=== PATIENT | female | born 1950 | race Caucasian/White ===

== ENCOUNTER 2017-03-14 05:40 | Day surgery (SDC) | payer MEDICARE, OTHER ==
[~2017-03-14] VITALS: Ht 177.8 cm; Wt 110.2 kg
[~2017-03-14 05:40] MED LIST: ADULT LOW DOSE81 MG PO; CHOLESTYRAMINE P4 GM PO; COREG25 MG PO; COZAAR25 MG PO; CYMBALTA20 MG PO; DOXAZOSIN MESYLA8 MG PO; HYDROCODON-ACE1 EA10 PO; LEVOTHYROXINE50 MCG PO; MULTIVITAMINS1 EAC7 PO; OMEPRAZOLE20 MG PO; VITAMIN D31000 UNI1 PO; WELLBUTRIN SR100 MG PO
[2017-03-14] MEDS ORDERED: POTASSIUM CHLO20 ME1 PO (06:00)
--- NOTE | 2017-03-14 08:22 | NUR ---
[facility] DECRE[facility] TO 6L VIA MASK.
--- NOTE | 2017-03-14 09:56 | NUR ---
PT TOLERATED APPLE SAUCE AND WATER WITH NO NAUSEA
--- NOTE | 2017-03-14 10:47 | NUR ---
1040 PT DENIES PAIN. TOLERATED COFFEE WITH NO NAUSEA. MUSTACHE DRESSING REPLACED AND A SMALL AMT OF DRAINAGE NOTED. PT AMB TO RESTROOM AND VOID NOTED. CALLED.
--- NOTE | 2017-05-23 09:33 | OR ---
[facility] [address] [place], [place] [address] Signed PREOPERATIVE DIAGNOSES: Septal deformity and left intranasal lesion. POSTOPERATIVE DIAGNOSES: Septal deformity and left intranasal lesion. PROCEDURE: Excision of left intranasal lesion and a septoplasty. SURGEON: Thierry Gaviria. ANESTHESIA: General LMA. Hosea HUGHES. PREOPERATIVE HISTORY: Joceline is a 66-year-old lady with left intranasal lesion. She has had some anosmia. CAT scan has shown a lesion attached to the inferior portion of the middle turbinate, some septal deformity. She was taken to the operating room for the above-mentioned procedure. OPERATIVE PROCEDURE AND FINDINGS: After informed consent, the patient was taken to the operating room, placed in supine position where general LMA anesthesia was induced. The patient, procedure were verified. The patient received preoperative intranasal oxymetazoline and intravenous Ancef. The preop CT was reviewed throughout. Headlight speculum exam of the nasal cavity showed moderate septal deformity on the right side posteriorly. There was prominent p olypoid mass attached to the left middle turbinate. The anterior surface extending down to the middle portion of the inferior surface. This was polypoid granular tissue. This lesion was excised with Mateo, sent to Pathology in formalin. Bleeding was minimal and stopped after the procedure. Septal deformity on the right side was excised with Mateo. Nasal airway was improved. Packing was placed, trimmed Merocel pack coated with Neosporin on the left side and hemostasis was verified. Pharynx was suctioned clear of blood secretions. The patient was awakened, extubated, and transported to the recovery room in good condition. No complications. BLOOD LOSS: Minimal. SPECIMEN: To Pathology. DRAINS: No drains. Thierry Gaviria MD GC/Modl Electronically Signed By: THIERRY GAVIRIA MD 05/23/17 0933 PATIENT NAME: ZEV KENDALL LIVAN OPERATIVE REPORT DATE OF : 52 PHYSICIAN: THIERRY GAVIRIA MD REPORT #: [id number] REPORT IS CONFIDENTIAL AND NOT TO BE RELEASED WITHOUT AUTHORIZATION [address] [place], [place] [address] Signed /[id number] Electronically Signed By: THIERRY GAVIRIA MD 05/23/17 09 PATIENT NAME: ZEV KENDALL CRESCENCIOISAURA LIVAN OPERATIVE REPORT DATE OF : 52 PHYSICIAN: THIERRY GAVIRIA MD REPORT #: [id number] REPORT IS CONFIDENTIAL AND NOT TO BE RELEASED WITHOUT AUTHORIZATION
== END 2017-03-14 10:45 | disposition home or self-care (01) ==
LOC: DS 05:40 → OPS 05:40 → DS 06:45 → OPS 10:45
PROVIDERS: Otolaryngology
PROC: 09BM0ZZ Excision of Nasal Septum, Open Approach (ICD-10-PCS; principal; 2017-03-14 06:45)
DX: D14.0 Benign neoplasm of middle ear, nasal cavity and accessory sinuses (principal); J34.2 Deviated nasal septum; I10 Essential (primary) hypertension; E03.9 Hypothyroidism, unspecified; E78.00 Pure hypercholesterolemia, unspecified; J45.909 Unspecified asthma, uncomplicated; Z86.19 Personal history of other infectious and parasitic diseases; Z90.710 Acquired absence of both cervix and uterus; Z90.49 Acquired absence of other specified parts of digestive tract; Z98.890 Other specified postprocedural states
CPT/HCPCS: 00160; 88305; 88342; J0690; J1100; J1885; J2250; J2405; J2704; J2765; J3010; J7120

== ENCOUNTER 2021-09-20 16:12 | Emergency (ER) | payer MEDICARE, OTHER ==
[~2021-09-20] VITALS: Ht 177.8 cm; Wt 110.2 kg
[~2021-09-20 16:12] MED LIST changes: +POTASSIUM CHLO20 ME1 PO
--- OUTSIDE RECORDS SUMMARY | 2021-09-20 16:16 | XMS ---
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 Yolande has no Care Guidelines for this patient. Karen VISIT COUNT (12 MO.) 1 [place] [place] TOTAL 1 NOTE: Visits indicate total known visits. ED/UCC VISIT TRACKING (12 MO.) 09/20/2021 16:13 S[facility] [place] OR TYPE: Emergency COMPLAINT: - CHEST/L ARM PAIN INPATIENT VISIT TRACKING (12 MO.) No inpatient visits to display in this time frame [email or web address]
--- NOTE | 2021-09-20 18:37 | EKG ---
[facility] [address] [facility] [place] [address] Signed Accelerated Junctional rhythm Junctional ST depression, probably normal Abnormal ECG When compared with ECG of 05-JAN-2017 09:55, Junctional rhythm has replaced Sinus rhythm Confirmed by BARRIE STAFFORD DO ([id number]) on 09/20/2021 6:37:21 PM Electronically Signed By: BARRIE STAFFORD DO 09/20/21 1837 PATIENT NAME: ZEV KENDALL Electrocardiogram DATE OF : 52 PHYSICIAN: BARRIE STAFFORD DO REPORT #: [id number] REPORT IS CONFIDENTIAL AND NOT TO BE RELEASED WITHOUT AUTHORIZATION
== END 2021-09-20 19:14 | disposition home or self-care (01) ==
LOC: ED 16:12
DX: R07.9 Chest pain, unspecified (principal); J44.9 Chronic obstructive pulmonary disease, unspecified; I10 Essential (primary) hypertension; Z87.891 Personal history of nicotine dependence; Z79.899 Other long term (current) drug therapy; Z79.890 Hormone replacement therapy
CPT/HCPCS: 71045; 80048; 83735; 84484; 85025; 93005; 93010; 99285-25